=== PATIENT | female | born 1985 | race Caucasian/White ===

== ENCOUNTER 2017-02-17 01:33 | Emergency (ER) | payer SELFPAY ==
[~2017-02-17] VITALS: Ht 175.3 cm; Wt 63.6 kg
[~2017-02-17 01:33] MED LIST: GENTAMICIN EYE D5 ML OD; MOTRIN 600600 MG/TAB PO; NORCO 325 MG-51 TAB PO; NORCO 325 MG-7.1 TAB PO; PEN-VEE K500 MG PO; PERCOCET 325 MG1 TA2 PO; PRENATAL1 TA1 PO; PROVENTIL0.09 MG/A1 IH; WOMEN'S DAILY F1 TAB PO; ZANTAC 150MG T150 MG PO; ZITHROMAX Z PA250 MG PO
[2017-02-17 01:38] VITALS: TEMP 97.9
[2017-02-17 04:23] LABS: BASO # 0.1 (0.0-0.2); BASO % 0.8 % (0.0-2.0); EOS # 0.1 (0.0-0.7); EOS % 1.2 % (0-4.0); GRAN # 3.9 (1.4-6.5); GRAN % 58.7 % (42.2-75.2); LYMPH # 2.1 (1.2-3.4); LYMPH % 32.2 % (20.0-51.0); MEAN CELL VOLUME 80 fl (80.0-100.0); MEAN CORPUSCULAR HGB CONC 33 g/dl (33.0-37.0); MEAN PLATELET VOLUME 10.2 fl (7.4-10.4); MONO # 0.5 (0.1-0.6); MONO % 6.9 % (1.7-9.3); PLATELET COUNT 379 K/mm3 (130-400); RED BLOOD COUNT 4.52 M/mm3 (4.10-5.30); REDCELL DISTRIBUTION WIDTH-CV 17.6 % (11.5-14.5); WHITE BLOOD COUNT 6.7 K/mm3 (4.8-10.8)
[2017-02-17 04:24] LABS: HEMOGLOBIN 11.8 g/dl (12.5-16.0); MEAN CORPUSCULAR HEMOGLOBIN 26 pg (27.0-31.0)
[2017-02-17 04:34] LABS: CALCIUM 9.3 mg/dL (8.4-10.2); CREATININE, serum 0.59 mg/dL (0.52-1.25); POTASSIUM 4.2 mmol/L (3.4-5.0)
[2017-02-17] MEDS ORDERED: CEPHALEXIN500 M1 PO (05:32)
[2017-02-17] MEDS ORDERED: NORCO 325 MG-51 TAB PO (05:32)
[2017-02-17 05:47] VITALS: BP 116/65; PULSE 85
== END 2017-02-17 05:47 | disposition home or self-care (01) ==
LOC: COL.ER 01:33
PROVIDERS: Emergency Medicine
DX: S41.111A Laceration without foreign body of right upper arm, initial encounter (principal); X99.9XXA Assault by unspecified sharp object, initial encounter; F17.210 Nicotine dependence, cigarettes, uncomplicated; Y92.414 Local residential or business street as the place of occurrence of the external cause
CPT/HCPCS: Q9967

== ENCOUNTER 2020-01-10 19:28 | Emergency (ER) | payer SELFPAY ==
[~2020-01-10] VITALS: Ht 175.3 cm; Wt 88.6 kg
[~2020-01-10 19:28] MED LIST changes: +AMOXICILLIN 8751 TAB PO; +CEPHALEXIN500 M1 PO
[2020-01-10 19:33] VITALS: TEMP 97.7
[2020-01-10 20:52] VITALS: BP 119/71; PULSE 83
== END 2020-01-10 20:58 | disposition home or self-care (01) ==
LOC: COL.ER 19:28
DX: J11.1 Influenza due to unidentified influenza virus with other respiratory manifestations (principal)

== ENCOUNTER → 2020-06-02 | Outpatient (CLI) | payer SELFPAY | LOC: ZCOL.LAB 16:23 | DX: Z20.828 Contact with and (suspected) exposure to other viral communicable diseases (principal) ==